=== PATIENT | female | born 1965 | race Caucasian/White ===

== ENCOUNTER 2024-05-03 11:21 | Day surgery (SDC) | payer BC, SELFPAY ==
[2024-05-03] VITALS (7 sets, daily range): BP systolic 87–131; BP diastolic 56–92; PULSE 61–66; RESP 14–18; TEMP 36.9–37; O2SAT 99–100; BMI 20.7
[2024-05-03] MEDS: Lactated Ringers 1,000 ML 15 ML IV (12:08)
--- NOTE | 2024-05-03 12:49 | PCM.PRE.AN2 ---
ASA Classification* ASA Classification ASA Classification: 2 Assessment & Plan Anesthesia* Anesthesia Assessment Anesthesia Assessment: Discussed sedation and/or anesthesia options, risks, benefits, and alternatives with patient/parents/legal guardian/POA. Questions invited. The patient/parents/legal guardian/POA seems to understand and agrees to proceed with anesthesia plan. Reviewed the physical assessment, medical history, allergy history and patient home medications list prior to surgery/procedure/anesthetic and documented any changes. Performed airway and anesthesia risk assessments. Anesthesia Type Anesthesia Type: MAC History Source History Obtained from:: Patient and Chart Anesthesia Focused Assessment* Temperature: 98.6 F Pulse Rate: 63 Blood Pressure: 131/92 Respiratory Rate: 16 Pulse Ox: 100 Oxygen Delivery Method: Room Air Airway Assessment Mouth opens: >3 cm Mallampati Score: II Teeth Condition: Dentures, Full and Lower (Lower dentures are out) Neck Range of motion (ROM): Full ROM Focused Labs Anesthesia Preop lab: CBC CHEMISTRY COAG Pre-Assessment Diagnosis/Proposed Procedure Planned Operative Procedure(s): CSCOPE OA Anesthesia History Anesthesia History - experimental psychologist: Anesthesia History - experimental psychologist Hx Hospitalization No 04/29/24 11:03 Any Problems With Anesthesia No 04/29/24 11:03 Cholinesterase deficiency No 04/29/24 11:03 You/Your Family Experience No 04/29/24 11:03 fever (hyperthermia) with Relationship Recent Exposure to Contagious No 05/03/24 12:01 Disease Does patient have nerve No 04/29/24 11:03 stimulator Patient instructed to have device shut off --Does patient have Pacemaker No 05/03/24 12:01 or ICD? When Was Last Pacemaker Check QUESTION #4 FULL TEXT: You/Your Family Experience fever (hyperthermia) with Anesthesia Last Oral Intake Last Oral intake: Last Oral Intake NPO since Meds taken in AM with sips of water? Meds patient instructed to take am of surgery Any additional information?: Yes Meds patient instructed to take am of surgery: Patient finished prep at 8 AM PONV PONV - experimental psychologist: PONV - experimental psychologist Female Yes 04/29/24 11:03 HX of Motion Sickness Yes 04/29/24 11:03 HX of N/V After Surgery No 04/29/24 11:03 Non-Smoker No 04/29/24 11:03 Duration of Surgery greater No 04/29/24 11:03 than 60 minutes Number of Risk Factors 2 04/29/24 11:03 PONV Score Moderate Risk 04/29/24 11:03 Height & Weight Height & Weight: Anesthesia: Height & Weight Height 5 ft 4 in 05/03/24 12:01 Weight: 54.8 kg 05/03/24 12:01 Body Mass Index (BMI) 20.7 05/03/24 12:01 Respiratory Assessment Respiratory Assessment - experimental psychologist: Respiratory Tract Infection Hx - experimental psychologist Hx Respiratory Tract Infection No 04/29/24 11:03 STOP Sleep Apnea STOP Sleep Apnea - experimental psychologist: STOP Sleep Apnea - experimental psychologist Hx Hypertension No 04/29/24 11:03 Hx Sleep Apnea No 04/29/24 11:03 CPAP BIPAP Do you snore loudly (louder Yes 04/29/24 11:03 than talking or can be heard Do you often feel tired/ No 04/29/24 11:03 fatigued/ sleepy during daytime? Has anyone observed you stop No 04/29/24 11:03 breathing during sleep? STOP Results Negative 04/29/24 11:03 QUESTION #5 FULL TEXT : Do you snore loudly (louder than talking or can be heard through closed doors)? Tobacco Use History Tobacco Use History - experimental psychologist: Tobacco Use History - experimental psychologist Tobacco Use Smoking Status Current every day smoker 04/29/24 11:03 Hx Tobacco Use Yes 04/29/24 11:03 Years Smoking Packs Smoked per Day Smoking Cessation Date was within the last 15 years Hx Smoking Cessation Date Hx Smoking Cessation Counseling Any additional information?: Yes Tobacco Use: Cigars (Patient smoked this morning) Hematologic Medial History Hematologic Hx - experimental psychologist: Hematologic Medical Hx - credit and collection manager Hx of Blood Transfusion Yes 04/29/24 11:03 Hx of Transfusion in last 3 No 04/29/24 11:03 Months Date of Last Transfusion (if within last 3 months) Ever experience any problems No 04/29/24 11:03 with transfusion(s)? Specify any problems Hx of Preganancy in last 3 No 04/29/24 11:03 Months Nurse Filling Out Transfusion DSCHRIBER 04/29/24 11:03 & Questions: Date: 04/29/24 04/29/24 11:03 Time: 11:04 04/29/24 11:03 Patient unable to answer at this time (ie. confused, unrespo /Reproduction History /Reproductive History - experimental psychologist: /Reproductive Hx- experimental psychologist Hx Now No 04/29/24 11:03 Gestational Age (in weeks): EDC: Hx Hx Para Hx Section SAB No 04/29/24 11:03 Active Medications Active Medications: Current Medications Generic Name Dose Route Start Last Admin Trade Name Freq PRN Reason Stop Dose Admin Lactated Ringer's 1,000 mls @ 15 mls/hr 05/03/24 11:45 05/03/24 12:08 IV 15 mls/hr .Q48H LEONARD Administration PFSH Medical History Wears glasses Wears dentures Post-menopausal Anxiety Alcohol use Anemia Easy bruising Injury of head and neck Heartburn Leg cramps Smoker Hx of colonic polyps Home Medications ?Medication ?Instructions ?Recorded ?Last Taken ?Type turmeric root extract 500 mg 500 mg PO DAILY 04/12/24 Unknown History capsule LIONS MAURILIO 2 drp PO DAILY 04/29/24 Unknown History Lactobacillus acidophilus 250 500 mmu cells PO DAILY 04/29/24 Unknown History million cell capsule (Probiotic Acidophilus) multivit,[id number]-hroi-UA-lut-#[id number] 1 tab PO DAILY 04/29/24 Unknown History 13.5 mg-200 mcg-250 mcg tablet Allergy/AdvReac Type Severity Reaction Status Date / Time No Known Allergies Allergy Verified 05/03/24 12:01 Surgical History Hx of breast augmentation History of History of hemicolectomy Hx of colonoscopy Social History current occupational status: employed current occupation: [employer] Smoking Status: Current every day smoker tobacco type: cigarettes alcohol intake: current alcohol intake frequency: a few times a week substance use type: does not use Review of Systems (Anesthesia) ROS Narrative System reviewed and no additional complaints, except as documented.
--- NOTE | 2024-05-03 13:00 | COLBX_PTH ---
PATIENT: ANG CARRASCO LOC: EN U#:[id number] AGE/SX: 58/F ROOM: RE05/03/[address]: Dr. Jamal Pa DO : 1965 BED: DIS: 05/03/2024 SPEC #: [id number] RECD: 05/03/24 17:27 STATUS: SUKHDEV RYAN #: [id number] JN: 05/03/24 13:[address]: Jamal Pa DEPT: SURGICAL PATHOLOGY RECD BY: Debi Mitchell ENTERED: 05/04/24 07:51 SP TYPE: COLON BX OTHR DR: JAYCEE Conner Tissues: COLON BIOPSY Procedures: Surgery Specimen Level IV HEADER OPERATION: Colonoscopy with biopsy PRE-OP DIAGNOSIS: Encounter for screening for malignant neoplasm of colon TISSUE SUBMITTED: Anastomosis biopsy MICROSCOPIC DIAGNOSIS Anastomosis, biopsy: Fragments of small intestinal and colonic mucosa with mild non-specific chronic inflammation. SJ/mr 05/06/2024 MICROSCOPIC DESCRIPTION Slides are reviewed. GROSS DESCRIPTION Received in fixative is one container labeled with the patient's name and designated Anastomosis biopsy. The specimen consists of multiple irregular fragments of light rodriguez soft tissue that in aggregate measure 1.0 x 0.3 x 0.1 cm. The specimen is totally submitted in one cassette. SONYA/ 05/04/2024 TC:3 CPT:07942
--- NOTE | 2024-05-03 13:23 | HP.PCM_ITS ---
[facility] - General General Date of Admission: 06/08/24 Date of Service: 05/03/24 Chief Complaint: Surveillance colonoscopy HPI Narrative ANG CARRASCO, is a 58 F who presents today for surveillance colonoscopy. She has a history of colonic polyps. She is status post segmental resection in the sigmoid colon from very large adenomatous polyp back in 2020. She has not had a colonoscopy since. She is not having abdominal pain at this time. She does not have any nausea, vomiting or diarrhea. Overall she is in very good health. [facility], [facility] Medical History Wears glasses Wears dentures Post-menopausal Anxiety Alcohol use Anemia Easy bruising Injury of head and neck Heartburn Leg cramps Smoker Hx of colonic polyps Home Medications ?Medication ?Instructions ?Recorded ?Last Taken ?Type turmeric root extract 500 mg 500 mg PO DAILY 04/12/24 Unknown History capsule LIONS MAURILIO 2 drp PO DAILY 04/29/24 Unknown History Lactobacillus acidophilus 250 500 mmu cells PO DAILY 04/29/24 Unknown History million cell capsule (Probiotic Acidophilus) multivit,ykxxiib-slpz-LN-lut-#[id number] 1 tab PO DAILY 04/29/24 Unknown History 13.5 mg-200 mcg-250 mcg tablet Allergy/AdvReac Type Severity Reaction Status Date / Time No Known Allergies Allergy Verified 05/03/24 12:01 Surgical History Hx of breast augmentation History of History of hemicolectomy Hx of colonoscopy Social History current occupational status: employed current occupation: [employer] Smoking Status: Current every day smoker tobacco type: cigarettes alcohol intake: current alcohol intake frequency: a few times a week substance use type: does not use ROS Review of Systems ROS Unobtainable: other Constitutional Constitutional: Denies fatigue, fever(s), poor appetite, weight gain or weight loss ENT HEENT: Denies mouth lesions Cardiovascular Cardiovascular: Denies abdominal bloating, abdominal edema or abdominal pain Respiratory/Chest Respiratory/Chest: Denies change in mental status, change in phlegm color, chest congestion or chest tightness Gastrointestinal Gastrointestinal: Denies belching, bloating, change in bowel habits, change in stool character, chewing difficulty, coffee ground emesis, constipation, cramping, diarrhea, dyspepsia, dysphagia, early satiety, excessive flatus, fecal incontinence, heartburn, hematemesis, hematochezia, hemorrhoids, loose stools, melena, nausea, odynophagia, rectal bleeding, tenesmus, vomiting or weight changes Genitourinary Genitourinary: Denies abdominal discomfort, burning urination or itching Musculoskeletal Musculoskeletal: Reports as per HPI; Denies muscle weakness or myalgias Integumentary Integumentary: Denies jaundice Neurologic Neurologic: Denies lack of coordination or weakness Psychiatric Psychiatric: Denies confusion, depression, memory loss, mood swings, paranoia or suicidal ideation Endocrine Endocrinology: Denies systems reviewed and no addt'l complaints, except as documented Hematologic/Lymphatic Hematologic/Lymphatic: Denies anemia, easy bleeding, easy bruising or lymphadenopathy Allergic/Immunologic Allergic/Immunologic: Denies systems reviewed and no addt'l complaints, except as documented Vital Signs Vital Signs Vital Signs: 05/03/24 12:01 05/03/24 12:01 05/03/24 12:54 Temperature 98.6 F 98.6 F Temperature Source Temporal Pulse Rate 63 63 Respiratory Rate 16 16 Respiratory Pattern Normal Blood Pressure 131/92 H 131/92 H Blood Pressure Mean 105 Blood Pressure Source Monitor Blood Pressure Position Semi-Fowlers Blood Pressure Location Left Arm Pulse Ox 100 100 Oxygen Delivery Method Room Air Room Air Weight Weight: 120 lb 13.013 oz Body Mass Index (BMI) 20.7 Physical Exam Const alert General Appearance: cooperative Orientation / Consciousness: oriented to person HEENT hearing grossly normal bilaterally Head and Scalp: normal to inspection Face and Sinus: face symmetric Nose: external nose normal Mouth: oral and palatal mucosa normal Eyes conjunctivae normal General Eye: normal appearance of both eyes Neck full ROM General: normal visual inspection Lymph Lymphatic: no lymphadenopathy noted Chest inspection of chest normal and palpation of chest normal Chest: symmetrical chest wall rise Resp normal respiratory effort Effort and Inspection: able to speak in complete sentences Cardio regular rate GI non-distended Percussion: normal to percussion Rectal Exam: deferred Neuro Speech: speech normal Gait (Neuro): normal gait Assessment & Plan Assessment/Plan (1) Encounter for screening for malignant neoplasm of colon: PLAN: She will undergo surveillance colonoscopy. She was explained alternatives, risk, benefits including not withstanding bleeding, infection, sepsis, perforation, need for emergent urgent . She will have an ASA of 3.
--- NOTE | 2024-05-03 13:55 | PCM.POST.ANE ---
Anesthesia: Postop Eval I Current Vital Signs Temperature: 98.6 F Pulse Rate: 66 Blood Pressure: 87/56 Respiratory Rate: 18 Pulse Ox: 100 Assessment Airway patent: Yes Spontaneous unlabored respirations: Yes nausea: No Vomiting: No Anesthesia Complication: No Fluid Hydration Crystalloid volume administer (ml): 500 Total IV fluid infused: 500 Progress Note Anesthesia document: Postop Eval 1 completed: Yes
--- NOTE | 2024-05-03 13:57 | OP.COLON_ITS ---
Patient Name: Sindy Calderon Procedure Date: 05/03/2024 1:22 PM Date of : 1965 Age: 58 Procedure: Colonoscopy Indications: Screening for colorectal malignant neoplasm Providers: Jamal Pa DO Referring MD: Jamal Pa DO Medicines: Monitored Anesthesia Care Patient Profile: This is a 58 year old female. Refer to note in patient chart for documentation of history and physical. Last Colonoscopy: 5 years ago. Complications: No immediate complications. Procedure: Pre-Anesthesia Assessment: - Prior to the procedure, a History and Physical was performed, and patient medications and allergies were reviewed. The patient is competent. The risks and benefits of the procedure and the sedation options and risks were discussed with the patient. All questions were answered and informed consent was obtained. Patient identification and proposed procedure were verified by the physician in the pre-procedure area. Mental Status Examination: alert and oriented. Airway Examination: normal oropharyngeal airway and neck mobility. Respiratory Examination: clear to auscultation. CV Examination: normal. Prophylactic Antibiotics: The patient does not require prophylactic antibiotics. Prior Anticoagulants: The patient has taken no anticoagulant or antiplatelet agents. ASA Grade Assessment: II - A patient with mild systemic disease. After reviewing the risks and benefits, the patient was deemed in satisfactory condition to undergo the procedure. The anesthesia plan was to use monitored anesthesia care (MAC). Immediately prior to administration of medications, the patient was re-assessed for adequacy to receive sedatives. The heart rate, respiratory rate, oxygen saturations, blood pressure, adequacy of pulmonary ventilation, and response to care were monitored throughout the procedure. The physical status of the patient was re-assessed after the procedure. After I obtained informed consent, the scope was passed under direct vision. Throughout the procedure, the patient's blood pressure, pulse, and oxygen saturations were monitored continuously. The Colonoscope was introduced through the anus and advanced to the ileocolonic anastomosis. The colonoscopy was performed without difficulty. The patient tolerated the procedure well. The quality of the bowel preparation was good. Scope In: 1:32:47 PM Scope Withdrawal Time 0 hours 9 minutes 9 seconds Scope Out: 1:46:53 PM Total Procedure Duration Time 0 hours 14 minutes 6 seconds Findings: There was evidence of a prior end-to-end ileo-colonic anastomosis in the ascending colon. This was patent and was characterized by healthy appearing mucosa. The anastomosis was traversed. Biopsies were taken with a cold forceps for histology. Verification of patient identification for the specimen was done. Estimated blood loss was minimal. The exam was otherwise without abnormality on direct and retroflexion views. A few small-mouthed diverticula were found in the recto-sigmoid colon and sigmoid colon. Impression: - Patent end-to-end ileo-colonic anastomosis, characterized by healthy appearing mucosa. Biopsied. - The examination was otherwise normal on direct and retroflexion views. - Diverticulosis in the recto-sigmoid colon and in the sigmoid colon. Recommendation: - Discharge patient to home. - Resume previous diet. - Continue present medications. - Await pathology results. - Repeat colonoscopy in 5 years for surveillance. Procedure Code(s): --- Professional --- 93328, Colonoscopy, flexible; with biopsy, single or multiple CPT copyright 2021 [employer]. All rights reserved. The codes documented in this report are preliminary and upon laser beam machine operator review may be revised to meet current compliance requirements. Jamal Pa DO 05/03/2024 1:56:31 PM This report has been signed electronically. Number of Addenda: 0 Note Initiated On: 05/03/2024 1:22 PM
--- NOTE | 2024-05-03 13:57 | OP.CCLET_ITS ---
05/03/2024 No Primary Care Physician Re : Colonoscopy procedure for Sindy Calderon Dear Care Physician This procedure was performed on Friday, May 03, 2024. My impressions and recommendations are as follows: Impressions : - Patent end-to-end ileo-colonic anastomosis, characterized by healthy appearing mucosa. Biopsied. - The examination was otherwise normal on direct and retroflexion views. - Diverticulosis in the recto-sigmoid colon and in the sigmoid colon. Recommendations : - Discharge patient to home. - Resume previous diet. - Continue present medications. - Await pathology results. - Repeat colonoscopy in 5 years for surveillance. My findings are described in the full procedure note, which is enclosed. If I can be of further assistance, please feel free to contact me at . Sincerely, Jamal Friend, 05/03/2024 1:56:31 PM This report has been signed electronically.
--- NOTE | 2024-05-03 16:55 | POSTOPAN2_ITS ---
Anesthesia Postop Eval I Sum Postop Eval Completion status Anesthesia document: Postop Eval 1 completed: Yes Anesthesia Postop Eval I Summary Anesthesia Postop Eval I Summary: Anesthesia Postop Eval I: Assessment Summary Airway patent Yes 05/03/24 13:55 [email or web address] Spontaneous unlabored Yes 05/03/24 13:55 [email or web address] [email or web address].CSIR respirations Mental status nausea No 05/03/24 13:55 [email or web address] [email or web address].CSIR Vomiting No 05/03/24 13:55 [email or web address] WORKER.CSIR Anesthesia Postop Eval I: Fluid Summary Crystalloid volume administer 500 05/03/24 13:55 [email or web address] [email or web address].CSIR (ml) Colloids volume administered ( ml) Blood Product volume administered (ml) Total IV fluid infused 500 05/03/24 13:55 [email or web address] [email or web address].CSIR Anesthesia Postop Eval I: Summary Notes Anesthesia Complication No 05/03/24 13:55 [email or web address] WORKER.CSIR Anesthesia Complication Comment: Post-operative progress note Anesthesia: Postop Eval II Evaluation Mental status: Awake and Calm Pain Level: 0 nausea: No Vomiting: No Complications Anesthesia Complication: No
--- NOTE | 2024-05-03 16:55 | PCM.POSTANE2 ---
Anesthesia Postop Eval I Sum Postop Eval Completion status Anesthesia document: Postop Eval 1 completed: Yes Anesthesia Postop Eval I Summary Anesthesia Postop Eval I Summary: Anesthesia Postop Eval I: Assessment Summary Airway patent Yes 05/03/24 13:55 ENVIRONMENTAL QUALITY ANALYST.CSIR Spontaneous unlabored Yes 05/03/24 13:55 ENVIRONMENTAL QUALITY ANALYST.CSIR respirations Mental status nausea No 05/03/24 13:55 ENVIRONMENTAL QUALITY ANALYST.CSIR Vomiting No 05/03/24 13:55 ENVIRONMENTAL QUALITY ANALYST.CSIR Anesthesia Postop Eval I: Fluid Summary Crystalloid volume administer 500 05/03/24 13:55 ENVIRONMENTAL QUALITY ANALYST.CSIR (ml) Colloids volume administered ( ml) Blood Product volume administered (ml) Total IV fluid infused 500 05/03/24 13:55 ENVIRONMENTAL QUALITY ANALYST.CSIR Anesthesia Postop Eval I: Summary Notes Anesthesia Complication No 05/03/24 13:55 ENVIRONMENTAL QUALITY ANALYST.CSIR Anesthesia Complication Comment: Post-operative progress note Anesthesia: Postop Eval II Evaluation Mental status: Awake and Calm Pain Level: 0 nausea: No Vomiting: No Complications Anesthesia Complication: No
--- NOTE | 2024-05-03 17:13 | POSTOPAN2_ITS ---
Anesthesia Postop Eval I Sum Postop Eval Completion status Anesthesia document: Postop Eval 1 completed: Yes Anesthesia Postop Eval I Summary Anesthesia Postop Eval I Summary: Anesthesia Postop Eval I: Assessment Summary Airway patent Yes 05/03/24 13:55 GENERAL INTERNIST AND PHYSICIAN LEADER.CSIR Spontaneous unlabored Yes 05/03/24 13:55 GENERAL INTERNIST AND PHYSICIAN LEADER.CSIR respirations Mental status Awake,Calm 05/03/24 16:55 nausea No 05/03/24 16:55 Vomiting No 05/03/24 16:55 Anesthesia Postop Eval I: Fluid Summary Crystalloid volume administer 500 05/03/24 13:55 GENERAL INTERNIST AND PHYSICIAN LEADER.CSIR (ml) Colloids volume administered ( ml) Blood Product volume administered (ml) Total IV fluid infused 500 05/03/24 13:55 GENERAL INTERNIST AND PHYSICIAN LEADER.CSIR Anesthesia Postop Eval I: Summary Notes Anesthesia Complication No 05/03/24 16:55 Anesthesia Complication Comment: Post-operative progress note Anesthesia: Postop Eval II Evaluation Mental status: Awake Pain Level: 0 nausea: No Vomiting: No
== END 2024-05-03 14:45 | disposition home or self-care (01) ==
LOC: EN 11:24 → AC 11:25
PROVIDERS: Visit Provider Internal Medicine Gastroenterology
PROC: 0DJD8ZZ Inspection of Lower Intestinal Tract, Via Natural or Artificial Opening Endoscopic (ICD-10-PCS; CPT 45378; principal; 2024-05-03 12:55)
DX: Z12.11 Encounter for screening for malignant neoplasm of colon (principal); K57.30 Diverticulosis of large intestine without perforation or abscess without bleeding; Z86.010 Personal history of colon polyps; F17.210 Nicotine dependence, cigarettes, uncomplicated; Z98.0 Intestinal bypass and anastomosis status
CPT/HCPCS: 45380; 88305; J7120; J2405